=== PATIENT | male | born 1960 | race Caucasian/White ===

== ENCOUNTER 2023-02-25 15:29 | Emergency (ER) | payer OTHER ==
--- NOTE | 2023-02-25 16:45 | XRAY Report ---
PROCEDURE: Knee 4 View RT INDICATIONS: Trauma TECHNIQUE: 4 views of the knee(s) were acquired. COMPARISON: None. FINDINGS: Bones: No fractures or dislocations. No suspicious bony lesions. Soft tissues: Small knee joint effusion. No suspicious soft tissue calcifications or masses. IMPRESSION: No acute bony abnormality. Reviewed by: Shant Francois MD on 02/25/2023 4:44 PM PST Approved by: Shant Francois MD on 02/25/2023 4:44 PM PST Station ID: [id number]
--- NOTE | 2023-02-25 16:45 | XRAY Report ---
PROCEDURE: Ankle 3 View RT INDICATIONS: Trauma TECHNIQUE: 3 views of the ankle were acquired. COMPARISON: None. FINDINGS: Bones: No fractures or dislocations. Ankle mortise is normally aligned. No suspicious bony lesions . Soft tissues: Moderate tibiotalar joint effusion. Achilles tendon appears normal. IMPRESSION: No acute bony abnormality, with a moderate tibiotalar fusion. If there remains a high clinical concer n for fracture, including inability to bear weight, consider cross-sectional imaging to exclude an oc cult fracture. Reviewed by: Shant Francois MD on 02/25/2023 4:44 PM PST Approved by: Shant Francois MD on 02/25/2023 4:44 PM PST Station ID: [id number]
--- NOTE | 2023-02-25 17:22 | ED Physician Documentation ---
PD HPI LOWER EXT INJURY - Stated complaint Stated Complaint: RT ANKLE INJ - Chief complaint Chief Complaint: Trauma Ext - History obtained from History obtained from: Patient - History of Present Illness PD HPI LOW EXT INJURY LOCATION: Right, Ankle, Foot Type of injury: Fall Where injury occurred: Home Timing - onset: Yesterday Timing - duration: Days (1) Timing - details: Gradual onset Pain level max: 7 Pain level now: 5 Improved by: Rest, Ice, Immobilization Worsened by: Moving, Palpating Associated symptoms: Swelling. No: Weakness, Numbness, Tingling Contributing factors: No: Anticoagulated - Additional information Additional information: 62-year-old male states that he slipped and fell yesterday, his right foot was plantarflexed when he fell. Now complaining of ankle and foot pain. He initially had some mild right knee pain but that has resolved. He has swelling of the right foot and ankle. He states increased pain with walking. Better with rest. Has been using crutches. PD PAST MEDICAL HISTORY - Past Medical History Past Medical History: Yes Cardiovascular: Hypertension Respiratory: Asthma Neuro: Migraines Endocrine/Autoimmune: None GI: Other : None HEENT: None Psych: None Musculoskeletal: None Derm: None Other Past Medical History: prostate cancer - Past Surgical History Past Surgical History: Yes Ortho: Other - Present Medications Home Medications: Ambulatory Orders Medication Instructions Recorded Confirmed Albuterol Sulf [Ventolin Hfa 1 - 2 puffs INH Q4HR PRN 02/25/23 02/25/23 Inhaler] Fluticasone 44 Mcg [Flovent] 1 puffs INH BID 02/25/23 02/25/23 Telmisartan 0 mg PO DAILY 02/25/23 02/25/23 amLODIPine [Norvasc] 5 mg PO DAILY 02/25/23 02/25/23 - Allergies Allergies/Adverse Reactions: Allergies Allergy/AdvReac Type Severity Reaction Status Date / [facility] Allergy Itching Verified 02/25/23 15:59 - Social History Does the pt smoke?: No Smoking Status: Never smoker Does the pt drink ETOH?: Yes Does the pt have substance abuse?: Yes Substance Use and Type: Marijuana - Immunizations Immunizations are current?: Yes PD ED PE NORMAL - Vitals Vital signs reviewed: Yes - General General: Alert and oriented X 3, No acute distress - Derm Derm: Warm and dry - Extremities Extremities: Other - Neuro Neuro: Alert and oriented X 3 - Free text exam Free text exam: Normal examination of the right knee. No swelling. No joint effusion. Ligaments intact. Mild swelling over the dorsum of the right foot. No significant bony tenderness. Brisk cap refill. No tenderness over the base of the fifth metatarsal, the medial or lateral malleolus. Otherwise normal examination of the foot and ankle. Results - Vitals Vitals: Vital Signs - 24 hr 02/25/23 02/25/23 15:59 17:39 Temperature 37 C Heart Rate 63 60 Respiratory 16 16 Rate Blood Pressure 147/82 H 173/97 H O2 Saturation 95 98 Oxygen O2 Source Room air - Rads (name of study) Right ankle x-ray Relevant Findings:: Final report received, See rad report Right knee x-ray Relevant Findings:: Final report received, See rad report PD Medical Decision Making - ED course Complexity details: reviewed results, re-evaluated patient, considered differential, d/w patient ED course: No acute findings on x-ray. Appears to be consistent with an ankle sprain/foot sprain. He was able to walk on the injury immediately after but after resting the swelling increased and the pain increased. Declines any pain medication for home. He does request a walking boot, we will trial him in this. I informed him that if the walking boot hurts, he can stay out of the boot and use crutches. He may bear weight as tolerated. Neurovascular intact. Patient counseled regarding signs and symptoms for which I believe and urgent re- evaluation would be necessary. Patient with good understanding of and agreement to plan and is comfortable going home at this time This document was made in part using voice recognition software. While efforts are made to proofread this document, sound alike and grammatical errors may occur. Departure - Departure Disposition: 01 Home, Self Care Clinical Impression: Right foot sprain Qualifiers: Encounter type: initial encounter Qualified Code(s): S93.601A - Unspecified sprain of right foot, initial encounter Right ankle sprain Qualifiers: Encounter type: initial encounter Involved ligament of ankle: unspecified ligament Qualified Code(s): S93.401A - Sprain of unspecified ligament of right ankle, initial encounter Condition: Good Instructions: ED Sprain Foot, ED Sprain Ankle, ED Boot Aircast Walker Follow-Up: Silvano Oshea MD [Primary Care Provider] - Within 1 week Comments: Your right knee x-ray and right ankle x-ray do not show any acute abnormalities. We have placed you in a walking boot, likely that you have a sprain of the ankle and foot. Try to not use the walking boot for longer than 1 week. Make sure to remove your foot frequently and move the foot and ankle. Elevate the affected area. You can use Motrin or Tylenol for pain. Compression with an Gagandeep bandage may help as well, wrapped this from the toes up to the mid lower leg. This will help to prevent swelling from being trapped down in your toes. Forms: PCP List Discharge Date/Time: 02/25/23 17:39
[2023-02-25 17:41] VITALS: BP 173/97; O2SAT 98
== END 2023-02-25 17:39 | disposition home or self-care (01) ==
LOC: ED 15:29
DX: S93.601A Unspecified sprain of right foot, initial encounter (principal); S93.401A Sprain of unspecified ligament of right ankle, initial encounter; W19.XXXA Unspecified fall, initial encounter; Y92.009 Unspecified place in unspecified non-institutional (private) residence as the place of occurrence of the external cause; I10 Essential (primary) hypertension
CPT/HCPCS: 99282; 99283

== ENCOUNTER 2023-08-22 16:41 | Outpatient (CLI) | payer OTHER | END 2023-08-22 16:42 | disposition home or self-care (01) | LOC: LAB 16:41 | PROVIDERS: ATTEND Radiology Radiation Oncology | DX: C61 Malignant neoplasm of prostate (principal) | CPT/HCPCS: 36415; 84153; 84402; 84403 ==